=== PATIENT | female | born 1985 | race African-American/Black ===

== ENCOUNTER 2017-09-08 12:35 | Observation (INO) | payer MEDICAID ==
[~2017-09-08] VITALS: Ht 157.5 cm; Wt 101.2 kg
[2017-09-08] MEDS ORDERED: LACTATED RINGERS 1,000 ML IV SCH (13:08)
[2017-09-08] MEDS ORDERED: CALC500T6 PO (13:18)
[2017-09-08 13:45] LABS: KETONES URINE TRACE (NEGATIVE); LEUKOCYTE ESTERASE URINE 1+ (NEGATIVE); NITRITE URINE NEGATIVE (NEGATIVE); OCCULT BLOOD URINE NEGATIVE (NEGATIVE); PH URINE 6.5 (4.5-8.0); PROTEIN URINE 1+ (NEGATIVE)
[2017-09-08 13:47] LABS: CLARITY URINE HAZY (CLEAR); COLOR URINE DARK YELLOW (YELLOW)
[2017-09-08] MEDS ORDERED: CEFAZOLIN 2,000 MG in DEXT 5% WATER 100 ML IV NR (14:45)
[2017-09-08] MEDS ORDERED: ONDANSETRON HCL 4MG/2ML VIAL ONE (15:45)
== END 2017-09-08 15:50 | disposition home or self-care (01) ==
LOC: L&D 12:35
PROVIDERS: ADMIT Obstetrics & Gynecology; ATTEND Obstetrics & Gynecology
DX: O62.9 Abnormality of forces of labor, unspecified (principal); Z3A.35 35 weeks gestation of pregnancy
CPT/HCPCS: 76805; 76818; 81003; 96361; 96365; G0378; J0690; J2405; J7120; J7060

== ENCOUNTER → 2020-09-29 | Outpatient (CLI) | payer MEDICAID, OTHER ==
[~2020-09-29] MED LIST: CALC500T6 PO; IBUP-2030 PO; IRON PO; MULT-1241 PO
== END | disposition home or self-care (01) ==
LOC: LAB 10:09
PROVIDERS: ATTEND Obstetrics & Gynecology
DX: Z01.812 Encounter for preprocedural laboratory examination (principal); Z20.822 Contact with and (suspected) exposure to COVID-19
CPT/HCPCS: 87426

== ENCOUNTER → 2020-10-01 | Day surgery (SDC) | payer MEDICAID ==
[~2020-10-01] VITALS: Ht 160 cm; Wt 99.8 kg
[~2020-10-01] MED LIST changes: -CALC500T6 PO; +CEFAZOLIN SODIUM 1000MG/VIAL ONE; +FENTANYL CITRATE/PF 50MCG/ML 2ML VIAL ONE; +HYDROMORPHONE HCL/PF 2MG/ML CPJ IV PRN; +KETOROLAC 30MG/ML VIAL IV NR; +LACTATED RINGERS 1,000 ML IV SCH; +LIDOCAINE HCL 2% JELLY 5ML ONE; +LIDOCAINE HCL/PF 1% 10 MG/ML 5ML VIAL ONE; +MEPERIDINE HCL/PF 25MG/ML CPJ IV PRN; +METOCLOPRAMIDE HCL 10MG/2ML VIAL ONE; +MIDAZOLAM HCL 2 MG/2 ML VIAL ONE; +MORPHINE SULFATE 2 MG/ML CPJ (NOT FOR IM USE) IV PRN; +ONDANSETRON HCL 4MG/2ML INJ IV PRN; +ONDANSETRON HCL 4MG/2ML INJ ONE; +POLYMYXIN B SULFATE 500000 UNITS/VIAL ONE; +PROPOFOL 200MG/20ML VIAL IV ONE; +SODIUM CHLORIDE 0.9% 1,000 ML IV ONE; +SUCCINYLCHOLINE CHLORIDE 200MG/10ML IV ONE
[2020-10-01 09:10] LABS: CLARITY URINE CLOUDY (CLEAR); COLOR URINE YELLOW (YELLOW); KETONES URINE TRACE (NEGATIVE); LEUKOCYTE ESTERASE URINE NEGATIVE (NEGATIVE); NITRITE URINE NEGATIVE (NEGATIVE); OCCULT BLOOD URINE NEGATIVE (NEGATIVE); PH URINE 5.5 (4.5-8.0); PROTEIN URINE NEGATIVE (NEGATIVE); SPECIFIC GRAVITY URINE 1.028 (1.005-1.030)
[2020-10-01 09:12] LABS: UCG SCREEN NEGATIVE
[2020-10-01 09:31] LABS: BASOPHILS % 0.4 % (0.0-2.0); EOSINOPHILS % 1.4 % (0.0-5.0); HEMATOCRIT. 34.8 % (36.0-48.0); HEMOGLOBIN. 11.7 g/dL (12.0-16.0); LYMPHOCYTES % 40.4 % (20.0-50.0); MEAN CORPUSCULAR HEMOGLOBIN 28.9 pg (28.0-32.0); MEAN PLATELET VOLUME 7.2 fl (7.4-10.4); MONOCYTES % 8.5 % (2.0-8.0); NEUTROPHILS % 49.3 % (40.0-76.0); PLATELET 266 x1000/uL (130-400); RED BLOOD CELL COUNT 4.04 mill/uL (4.2-5.4); RED CELL DISTRIBUTION WIDTH 13.6 % (11.6-14.6)
[2020-10-01 09:37] LABS: CHLORIDE 109 mEq/L (98-107)
[2020-10-01 09:43] LABS: PARTIAL THROMBOPLASTIN TIME 23.9 sec (23.4-31.0); PROTHROMBIN TIME 10.3 sec (9.6-11.0)
[2020-10-01 12:18] VITALS: BP 130/76
== END | disposition home or self-care (01) ==
LOC: OR 08:19
PROVIDERS: ATTEND Obstetrics & Gynecology
DX: N92.1 Excessive and frequent menstruation with irregular cycle (principal); E78.5 Hyperlipidemia, unspecified; F17.210 Nicotine dependence, cigarettes, uncomplicated; Z79.899 Other long term (current) drug therapy; Z98.890 Other specified postprocedural states
CPT/HCPCS: 36415; 58558; 80053; 81003; 81025; 85025; 85610; 85730; 86850; 86900; 86901; 88305; J0330; J1885; J2250; J2405; J2704; J2765; J3010; J3490; J0690